=== PATIENT | female | born 1985 | race Caucasian/White ===

== ENCOUNTER 2025-01-15 15:38 | Inpatient (IN) | payer BC, SELFPAY ==
[2025-01-14 08:50] VITALS: BMI 24.5
[2025-01-14 09:12] LABS: Collection Type, Urine Clean Catch; WBC,Urine 0 /hpf (0-5)
[2025-01-14 10:06] LABS: Basophils # (Auto) 0.1 Thou/mm3 (0.0-0.2); Basophils % (Auto) 1 % (0-2.5); Eosinophils # (Auto) 0.3 Thou/mm3 (0.0-0.5); Eosinophils % (Auto) 3 % (0-10); Hematocrit 43.5 % (36.0-46.0); Hemoglobin 14.6 g/dL (12.0-16.0); Immature Granulocytes % (Auto) 0 % (0-0); Immature Granulocytes Auto 0.03 Thou/mm3 (0.00-0.00); Lymphocytes % (Auto) 26 % (10-50); Mean Corpuscular HGB Conc 33.6 g/dl (31.0-37.0); Mean Corpuscular Hemoglobin 27.4 pg (25.0-35.0); Mean Corpuscular Volume 82 fL (80-100); Monocytes # (Auto) 0.7 Thou/mm3 (0.0-0.8); Monocytes % (Auto) 6 % (0-12); Neutrophils # (Auto) 7.6 Thou/mm3 (1.8-7.7); Neutrophils % (Auto) 65 % (37-80); Nucleated Red Blood Cell % 0 /100 WBC (0); Platelet Count 402 Thou/mm3 (140-440); RDW Standard Deviation 39.3 fL (36.4-46.3); Red Blood Count 5.33 Miln/mm3 (4.00-5.20); White Blood Count 11.6 Thou/mm3 (3.6-11.0)
[2025-01-14 10:09] LABS: Amorphous Crystals,Urine Present (Absent); Bacteria,Urine Rare; Bilirubin,Urine Negative (Negative); Blood,Urine Negative (Negative); Clarity,Urine Turbid (Clear/Hazy); Color,Urine Yellow (Lt Yel-Yel); Glucose, Urine Negative (Negative); Ketones,Urine Negative (Negative); Leukocyte Esterase,Urine Positive (Negative); Nitrite,Urine Negative (Negative); Protein,Urine Negative (Neg - Trace); RBC,Urine 4 /hpf (0-3); Specific Gravity,Urine 1.023 (1.001-1.035); Squamous Epithelial Cell,Urine 4 /hpf (0-5); Urobilinogen,Urine Negative mg/dL (0.0-1.0)
[2025-01-14 10:10] LABS: HCG Qualitative,Urine Negative
[2025-01-14 10:14] LABS: Anion Gap 9 (7-16); BUN/Creatinine Ratio 15 Ratio (12-20); Blood Urea Nitrogen 12 mg/dL (9-23); Calcium 9.8 mg/dL (8.3-10.6); Carbon Dioxide 26.5 mMol/L (20.0-31.0); Chloride 103 mMol/L (98-107); Creatinine (Component) 0.8 mg/dL (0.6-1.3); Estimated Creatinine Clearance 97.1 mL/min (>60); Glucose 88 mg/dL (74-106); Osmolality,Calculated 274 (275-295); Sodium 138 mMol/L (136-145); eGFR > 60 See Note
--- NOTE | 2025-01-14 14:26 | SUR.PREOP ---
WBC 11.6, Dr Elias notified and ok to proceed with surgery.
[2025-01-15] VITALS (10 sets, daily range): BP systolic 102–116; BP diastolic 51–65; PULSE 64–101; RESP 12–20; TEMP 36.2–36.9; O2SAT 95–100; BMI 25.1
--- NOTE | 2025-01-15 08:46 | SUR.PREOP ---
Patient expressed gratitude for prayer before their procedure.
--- NOTE | 2025-01-15 11:54 | PD.GYNPROC ---
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 She received general anesthesia. She was placed in dorsal supine modified lithotomy position for laparoscopic hysterectomy. She received surgical site infection prophylaxis, timeout was done. She was prepped and draped in the usual sterile fashion. Surgical team was already and scrubbed in. Indwelling Marie catheter was placed, balloon was inflated it was left in place. Medium size Vcare uterine manipulator was placed through the cervical os up to 8 cm length, balloon inflated and left in place. Sterile gloves were donned again. A 5 mm direct trocar entry was done at the umbilicus, CO2 gas insufflated to pressure of 15 cm, after removing the trocar and leaving the port the camera was placed in, and the entire pelvis and abdomen were visualized. There was no sign of any trauma. 2 ports were placed laterally under direct visualization 5 mm in size 2 fingerbreadth medial and above the anterior superior iliac spine on both sides. The surgeon was on the left side of the patient, the R FNA was on the right side of the patient. Then using the Endo seal and with manipulation of the uterus with the help of Vcare, and the patient in Trendelenburg position, hysterectomy was begun. The tubal cornual ligament on the left side the utero-ovarian ligament on the left side and the round ligament on the left side were clamped coagulated sealed and then cut. Same procedure was done on the right side. The tubal segments were removed on either side by coagulating sealing and cutting the mesosalpinx hemostatically, and the tubal segments were removed on either side. The broad ligament leaf was opened anteriorly and posteriorly, to reach the uterine vessels, and the uterovesical fold of peritoneum was incised from the left to the right with the Endo seal at the level of the isthmus and the bladder was retracted down. Then the uterine vascular pedicle was clamped with the Endo seal sealed twice and then cut at the level of the isthmus and above the Vcare on the right and the left side, on the left side there was some bleeding which was controlled with the help of Endo seal. Then using the hook and after removing the Endo seal, anterior colpotomy was made, at that point on the left side on the colpotomy incision there was bleeding which was becoming hard to control because of desufflation after the colpotomy, however attempts were made with the Endo seal to control the bleeding and then the rest of the procedure was completed from below vaginally The instruments were removed abdominally then the vaginal portion of the surgery was done. The Vcare was desufflated and removed, This was followed by holding anterior lip of cervix with single-tooth tenaculum and then going through the anterior colpotomy and the uterus was everted out with the help of Malia clamps. And then the posterior colpotomy portion which was still attached to the vaginal vault was clamped cut and secured with the help of Misti clamps and also with 0 Vicryl suture, the left-sided uterine pedicle was also secured with the help of 0 Vicryl suture after clamping it with the Misti clamps, hemostasis was good the vaginal vault was approximated with 0 Vicryl running suture and then approximated the anterior and posterior vaginal amaya at the level of the vaginal vault. Hemostasis is good. Gloves changed, laparoscopic survey shows good hemostasis the ovaries are normal and healthy looking Laparoscopic portion is completed cystoscopy is done and both the ureteral openings are identified with peristalsis and the bladder is intact. Then the laparoscope trocars were removed after desufflation of the abdomen and the entry ports are closed with 4-0 Monocryl and Dermabond vaginal instruments are removed already the instrument sponge count is all correct local anesthesia was infiltrated at the laparoscopic trocar sites EBL was 100 cc Marie is draining clear urine,. Patient tolerated the procedure well. Specimen: uterus, left tube and right tube Estimated blood loss (ml): 100 Findings: anteverted uterus, evidence of prior BTL, ovaries look normal. Complications: none Narrative: see procedure Surgical staff Operation Date: 01/15/25 09:15 Case Staff QUANTITATIVE STRATEGY ANALYST: Glenn Pastrana RNinstructional materials director: Lianna Mcneill
--- NOTE | 2025-01-15 12:01 | SUR.PHASEI ---
1201: Pt. AAOx4, vitals stable, breathing unlabored, no complaint of pain or nausea, x3 dermabond sites to ABD CDI, peripad in place CDI, no active bleed noted, report received from Glenn PADGETT and Manolo GEORGE.
[2025-01-15] MEDS: HYDROmorphone INJ 2 MG/ML VIAL 0.5 MG IV ×2 (12:14→12:35)
--- NOTE | 2025-01-15 13:00 | SUR.PHASEI ---
1300: Pt. AAOx4, vitals stable, breathing unlabored, no complaint of pain or nausea, dressing to ABD CDI, peripad in place CDI, aldana catheter in place draining clear yellow urine, pt. tolerated sips of soda well, gave report to Swetha GEORGE prior to transfer to room 462. Family made aware of transfer to room.
[2025-01-15] MEDS: KETOROLAC INJ 30 MG/ML VIAL IVP ×2 (15:18→21:26)
[2025-01-15] MEDS: ONDANSETRON INJ 2 MG/ML INJ 2 ML 4 MG IV (15:19)
[2025-01-15] MEDS: HYDROmorphone INJ 2 MG/ML VIAL 1 MG IV (18:05)
[2025-01-15] MEDS: Milk Of Magnesia Susp 30 ML UDC PO (21:26)
[2025-01-15] MEDS: bisacodyL 5 MG TABEC 10 MG PO (21:26)
[2025-01-16 00:35] VITALS: BP 106/62; PULSE 72; RESP 16; TEMP 36.6; O2SAT 98
[2025-01-16] MEDS: HYDROmorphone INJ 2 MG/ML VIAL 1 MG IV ×2 (00:40→05:25)
[2025-01-16 05:25] VITALS: BP 104/66; PULSE 75; RESP 18; TEMP 36.6; O2SAT 96
--- NOTE | 2025-01-16 05:30 | PC.NURSE ---
@1368 Physician called to clarify orders and provide update on pt. Per Dr. Elias, discontinue Dilaudid and Toradol and replace with Kersey 325mg q4h and Ibuprofen 800mg q8h; diet to be changed to regular; pt can go home today - Dr. Elias will place discharge orders
[2025-01-16 05:52] LABS: Basophils % (Auto) 0 % (0-2.5); Eosinophils # (Auto) 0.1 Thou/mm3 (0.0-0.5); Eosinophils % (Auto) 1 % (0-10); Hematocrit 36.4 % (36.0-46.0); Hemoglobin 12.4 g/dL (12.0-16.0); Immature Granulocytes % (Auto) 0 % (0-0); Immature Granulocytes Auto 0.05 Thou/mm3 (0.00-0.00); Lymphocytes # (Auto) 3.6 Thou/mm3 (1.0-4.8); Lymphocytes % (Auto) 20 % (10-50); Mean Corpuscular HGB Conc 34.1 g/dl (31.0-37.0); Mean Corpuscular Hemoglobin 27.5 pg (25.0-35.0); Mean Corpuscular Volume 81 fL (80-100); Monocytes % (Auto) 6 % (0-12); Neutrophils % (Auto) 73 % (37-80); Nucleated Red Blood Cell % 0 /100 WBC (0); Platelet Count 344 Thou/mm3 (140-440); RDW Standard Deviation 38.6 fL (36.4-46.3); Red Blood Count 4.51 Miln/mm3 (4.00-5.20); White Blood Count 17.9 Thou/mm3 (3.6-11.0)
[2025-01-16 06:15] LABS: Albumin, Serum 3.8 gm/dL (3.5-5.0); Anion Gap 6 (7-16); BUN/Creatinine Ratio 13 Ratio (12-20); Blood Urea Nitrogen 10 mg/dL (9-23); Calcium 8.6 mg/dL (8.3-10.6); Calcium (Corrected) 8.8 mg/dL (8.5-10.1); Carbon Dioxide 27.1 mMol/L (20.0-31.0); Chloride 106 mMol/L (98-107); Creatinine (Component) 0.8 mg/dL (0.6-1.3); Estimated Creatinine Clearance 93.6 mL/min (>60); Glucose 91 mg/dL (74-106); Osmolality,Calculated 276 (275-295); Phosphorous 2.9 mg/dL (2.4-5.1); Potassium 3.3 mMol/L (3.4-5.1); Sodium 139 mMol/L (136-145); eGFR > 60 See Note
[2025-01-16 07:45] VITALS: BP 103/60; PULSE 86; RESP 17; TEMP 36.8; O2SAT 98
[2025-01-16] MEDS: HYDROcodone/APAP 5/325 TABLET 1 TAB PO ×3 (07:53→18:20)
[2025-01-16] MEDS: cefTRIAXone 1,000 MG in SODIUM CHLORIDE 0.9% (Popper) 50 ML 100 MG IV (10:11)
[2025-01-16 11:25] VITALS: BP 100/62; PULSE 72; RESP 18; TEMP 36.8; O2SAT 99
[2025-01-16 14:24] LABS: Collection Type, Urine Clean Catch
[2025-01-16 14:33] LABS: Bilirubin,Urine Negative (Negative); Blood,Urine 3+ (Negative); Color,Urine Lt-Yellow (Lt Yel-Yel); Glucose, Urine Negative (Negative); Ketones,Urine Negative (Negative); Leukocyte Esterase,Urine Positive (Negative); Nitrite,Urine Negative (Negative); Protein,Urine Negative (Neg - Trace); RBC,Urine 177 /hpf (0-3); Specific Gravity,Urine 1.012 (1.001-1.035); Squamous Epithelial Cell,Urine 1 /hpf (0-5); Urobilinogen,Urine Negative mg/dL (0.0-1.0); WBC,Urine 10 /hpf (0-5)
[2025-01-16 14:44] LABS: Clarity,Urine Hazy (Clear/Hazy)
[2025-01-16 18:25] LABS: Basophils % (Auto) 0 % (0-2.5); Eosinophils # (Auto) 0.2 Thou/mm3 (0.0-0.5); Eosinophils % (Auto) 2 % (0-10); Hematocrit 37.8 % (36.0-46.0); Hemoglobin 12.5 g/dL (12.0-16.0); Immature Granulocytes % (Auto) 0 % (0-0); Immature Granulocytes Auto 0.03 Thou/mm3 (0.00-0.00); Lymphocytes # (Auto) 4.4 Thou/mm3 (1.0-4.8); Lymphocytes % (Auto) 36 % (10-50); Mean Corpuscular HGB Conc 33.1 g/dl (31.0-37.0); Mean Corpuscular Hemoglobin 27.2 pg (25.0-35.0); Mean Corpuscular Volume 82 fL (80-100); Monocytes # (Auto) 0.7 Thou/mm3 (0.0-0.8); Monocytes % (Auto) 6 % (0-12); Neutrophils # (Auto) 6.8 Thou/mm3 (1.8-7.7); Neutrophils % (Auto) 56 % (37-80); Nucleated Red Blood Cell % 0 /100 WBC (0); Platelet Count 344 Thou/mm3 (140-440); RDW Standard Deviation 39.8 fL (36.4-46.3); Red Blood Count 4.59 Miln/mm3 (4.00-5.20); White Blood Count 12.1 Thou/mm3 (3.6-11.0)
--- NOTE | 2025-01-16 18:42 | PD.GYNDS ---
Planned Discharge Date 01/16/25 DS: Providers Provider Date of admission: 01/15/25 15:38 Primary care physician: Rhett Arriaga MD Admitting Provider: Aster Elias MD Attending Provider on Admission: Aster Elias MD Attending Provider on DC: Aster Elias MD Discharging Provider: Aster Elias MD Anticipated date of discharge: 01/16/25 Hospital Course Hospital Course Hospital course: doing well . had a BM and also spontaneous voiding and tolerating po VSS ,minimal vaginal bleeding , afebrile Had an elevated WBC count , UA sent / received rocephin 1 gram iv prophylaxis , repeat WBC decesing trend and patient is feeling fine and had no symtoms of infection No CVAT Time spent discussing smoking cessation with patient: more than 10 minutes Status at Discharge Functional status at discharge: independent ambulation Overall status at discharge: patient is progressing back to baseline Time Spent with Patient Time attestation: Total time spent providing and/or coordinating discharge services: Time spent: Less than 30 minutes Specific discharge activities: pelvic rest x 6 weeks / do not lift weight over 10 lbs x 2 weeks if vaginal bleeding or fever to return to ED or call Quality: VTE Deep Vein Thrombosis/Pulmonary Embolism Present on Admission: No 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 Temp Pulse Resp BP Pulse Ox O2 Del Method 98.2 F 72 18 100/62 99 Room Air 01/16/25 11:25 01/16/25 11:25 01/16/25 11:25 01/16/25 11:25 01/16/25 11:25 01/16/25 11:25 Constitutional Constitutional: no acute distress Routine Respiratory Exam Respiratory: Present chest non-tender, lungs clear, normal breath sounds, no resp distress and CTA bilaterally Routine Abdominal Exam Abdominal: Present soft, normoactive bowel sounds and tenderness (appropriate tenderness and incisions are C,D and intact) Routine Exam Patient deferred: external exam, groin exam (normal) and perineal exam Routine Extremities Exam Extremities: Present full ROM, pulses intact and calf tenderness (none ) Routine Back/Spine/Pelvis Exam Back/Spine: Present full ROM and CVA tenderness (none) Routine Skin Exam Skin: Present intact and normal turgor Routine Psychiatric Exam Psychiatric: Present normal affect, normal thought process, cooperative, good insight and good judgment Discharge Plan Plan Patient Disposition: HOME (Self Care) Disposition Comment: stable Patient condition on transfer: Stable Prescriptions/Referrals Prescriptions/Med Rec: New doxycycline hyclate 100 mg capsule 100 mg PO BID Qty: 14 0RF Rx Instructions: prophylaxis Continued ibuprofen 800 mg tablet 800 mg PO Q8H PRN (Reason: pain) Patient Comments: TAKE 1 TABLET BY MOUTH THREE TIMES A DAY WITH FOOD 13 No Action sertraline 100 mg tablet 100 mg PO DAILY Patient Comments: TAKE 1 TABLET BY MOUTH EVERY DAY Referrals: Rhett Arriaga MD [Primary Care Provider] - Patient/Caregiver Discharge Instructions Discharge Activity: activity as tolerated Other Discharge Activity Instructions:: pelvic restx 6 weeks Education Materials: Abdominal Pain, Communicating About Pain, Anatomy of the Digestive System, Laparoscopic Hysterectomy Your ... Print Language: [place] Stand Alone Forms: Luz Maria Award Info., Patient Portal Info Letter Discharge Order Discharge Orders: Discharge (Routine); Ordered 01/16/25 Ordered By: Aster Elias
== END 2025-01-16 19:28 | disposition home or self-care (01) | DRG 743 ==
LOC: S4NX 15:40 → S2EX 01-18 05:59
PROVIDERS: Admitting Provider Obstetrics & Gynecology; PCP Family Medicine; Referring Provider Obstetrics & Gynecology; Visit Provider Obstetrics & Gynecology
PROC: 0UT94ZZ Resection of Uterus, Percutaneous Endoscopic Approach (ICD-10-PCS; principal; 2025-01-15 09:00)
DX: N94.6 Dysmenorrhea, unspecified (principal); N94.10 Unspecified dyspareunia; N85.4 Malposition of uterus; Z98.51 Tubal ligation status
CPT/HCPCS: 36415; 80048; 80069; 81001; 81025; 85025; 86850; 86900; 86901; A4217; A4649; J0131; J0696; J1100; J1885; J2250; J2405; J2704; J2765; J3010; J3490; J7050; Q9968; A9270; J0665